=== PATIENT | female | born 1965 | race Caucasian/White ===

== ENCOUNTER 2016-09-03 16:52 | Outpatient (CLI) | payer OTHER ==
--- NOTE | 2016-09-03 18:59 | DIAGNOSTIC IMAGING REPORT ---
PROCEDURE: MR LUMBAR SPINE W/O CONTRAST INDICATION: LBP,SCIATICA,LUMBAR DISC DISEASE, initial encounter TECHNIQUE: Noncontrast T1, T2, and STIR sagittal images. T1 and T2 axial images. COMPARISON: Lumbar spine x-ray 08/06/2016 FINDINGS: Normal alignment without fracture. Mild spur formation. Severe L5-S1 disc space narrowing with fatty endplate degenerative changes. Normal conus. Paraspinal soft tissues are normal. L1-2: Normal appearance. L2-3: Normal appearance. L3-4: Small broad-based disc bulge and mild facet arthropathy. No spinal or foraminal stenosis. L4-5: Small broad-based disc bulge and mild facet arthropathy. No foraminal or spinal stenosis. L5-S1: Small disc bulge/spur complex with moderate facet arthropathy. There is mild to moderate right and mild left foraminal stenosis. There is no spinal stenosis. IMPRESSION: 1. Severe L5-S1 disc space narrowing with disc bulge and facet arthropathy resulting in mild to moderate right and mild left foraminal stenosis
== END 2016-09-03 23:00 ==
LOC: MRI SRH 16:52
DX: M51.26 Other intervertebral disc displacement, lumbar region (principal); M51.27 Other intervertebral disc displacement, lumbosacral region

== ENCOUNTER 2016-12-17 15:38 | Outpatient (CLI) | payer OTHER ==
--- NOTE | 2016-12-17 17:23 | DIAGNOSTIC IMAGING REPORT ---
PROCEDURE: XR KNEE 3 VIEWS - LEFT INDICATION: Left knee injury June 2016 with continued pain. TECHNIQUE: Three views. COMPARISON: None. FINDINGS: Unfused accessory ossification center of the lower pole of the patella. Mild spurring of the patellofemoral compartment. No fracture, dislocation or effusion. IMPRESSION: 1. Mild degenerative changes of the patellofemoral compartment.
== END 2016-12-17 23:00 | disposition home or self-care (01) ==
LOC: XR SRH 15:38
DX: M17.12 Unilateral primary osteoarthritis, left knee (principal)

== ENCOUNTER 2017-01-30 09:42 | Outpatient (CLI) | payer OTHER ==
--- NOTE | 2017-01-30 13:10 | DIAGNOSTIC IMAGING REPORT ---
PROCEDURE: MR LOWER EXT JOINT WO CONT-LT INDICATION: Medial left knee pain, popping and weakness. History of injury and prior surgery. TECHNIQUE: PD axial, T1 and PD fat sat coronal, PD and PD fat sat sagittal, and sagittal oblique STIR sequence through the ACL. COMPARISON: Plain films 12/17/2016 FINDINGS: Menisci: Degenerative intermediate signal involving the body and posterior horn of the medial meniscus. There is intermediate signal and blunting of the free edge of the lateral meniscal posterior horn. There is a large tear involving the anterior horn of the lateral meniscus, the majority of which is not visible. There is a fragment containing horizontal tear seen anterior, just lateral to the intercondylar notch. The body of the meniscus ventrally is fragmented, the mid portion is laterally extruded and diminutive, and the dorsal portion contains a horizontal tear. Abnormally located meniscal tissue seen along the lateral aspect of the intercondylar notch anteriorly (series 6 image 11). Ligaments: Intermediate signal and slight laxity in the course of the anterior cruciate ligament. The posterior cruciate ligament is intact. There is thickening and intermediate signal at the origin of the fibula collateral ligament. Distally, there is slight attenuation of the fibula collateral ligament. There is a conjoined tendon is also slightly attenuated but maintains normal signal. Iliotibial band is normal. Extensor mechanism: Mild intermediate signal around the lateral retinacular fibers. There is micro metallic artifact along the lateral aspect of the patella at the retinacular insertion site. Distal quadriceps, patellar tendons, and medial retinacular fibers appear normal. Patellar position is normal. Osseous structures and articular surfaces: Osseous irregularity along the lateral aspect of the patella at the location of micro metallic artifact. No suspicious edema. Moderate lateral compartment joint space loss with moderate marginal spur formation. Small medial compartment spur formation. Intraosseous geode along the anterior mid tibia subjacent to the lateral tibial spine at the ACL insertion. Cystic change measures approximately 1.4 x 1.4 by 0.9 cm. Otherwise normal marrow signal. Tricompartment cartilage irregularity with areas of full-thickness fissuring and diffuse cartilage thinning in the medial and lateral patellar facet this, diffuse thinning over the femoral articular surface of the patellofemoral compartment, and moderate irregularity, thinning, and full-thickness fissuring of the lateral compartment and to a lesser extent along the medial femoral condyle. Fluid, soft tissues, and joint space: A small suprapatellar joint effusion is present. No Ko's cyst. Muscles and other tendinous attachments are normal. No bursitis. IMPRESSION: 1. Extensive lateral meniscal tearing and potentially a medially flipped meniscal fragment. Given a moderate degree of cartilage loss and osteoarthritic spurring in the lateral compartment, this may be a chronic injury. Correlate clinically. 2. Chronic-appearing low grade intermediate signal involving the anterior cruciate ligament, likely chronic strain. No acute tearing. 3. Surgical changes along the lateral aspect of the patella and involving the lateral retinacular fibers. 4. 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
== END 2017-01-30 23:00 | disposition home or self-care (01) ==
LOC: MRI SRH 09:42
DX: S83.282A Other tear of lateral meniscus, current injury, left knee, initial encounter (principal); M94.262 Chondromalacia, left knee